=== PATIENT | male | born 1975 ===

== ENCOUNTER 2017-06-10 00:47 | Emergency (ER) | payer MEDICAID ==
[2017-06-10 02:10] VITALS: TEMP 98.8
--- NOTE | 2017-06-10 02:12 | ED PDOC ---
Arrival/HPI - General Time Seen by Provider: 06/10/17 01:55 Historian: Patient - History of Present Illness Narrative History of Present Illness (Text): you were treated in the ED today for hx of left shoulder dislocation and had a fall injury to the left shoulder with pain and secondarily with head injury but otherwise without any loss of consciousness/neck pain/nausea/vomiting/headache/ dizziness/difficulty breathing/chest pain/abdomen pain/numbness/tingling/loss of limb function/pain with urination. 06/10/17 02:08 Time/Duration: 4-6 hours Past Medical History - Provider Review Nursing Documentation Reviewed: Yes - Travel History Have you recently traveled outside [place] w/in the past 3 mons?: No Family/Social History - Physician Review Nursing Documentation Reviewed: Yes Family/Social History: No Known Family HX Allergies/Home Meds Allergies/Adverse Reactions: Allergies oxycodone Allergy (Verified 06/10/17 01:51) ANAPHYLAXIS Review of Systems - Review of Systems Constitutional: Normal Eyes: Normal ENT: Normal Respiratory: Normal Cardiovascular: Normal Gastrointestinal: Normal Genitourinary Male: Normal Musculoskeletal: Arthralgias Skin: Normal Neurological: Normal Endocrine: Normal Hemo/Lymphatic: Normal Psychiatric: Normal Physical Exam Vital Signs Reviewed: Yes Vital Signs Temp Pulse Resp BP Pulse Ox 06/10/17 02:06 98.8 F 93 H 18 117/69 100 Appearance: Positive for: Well-Appearing, Non-Toxic, Comfortable Pain Distress: None Mental Status: Positive for: Alert and Oriented X 3 - Systems Exam Head: Present: Normocephalic, Other (mild scalp abrasion but no depression/ tenderness.) Pupils: Present: PERRL Extroacular Muscles: Present: EOMI Conjunctiva: Present: Normal Ears: Present: Normal Mouth: Present: Moist Mucous Membranes Pharnyx: Present: Normal Nose (External): Present: Atraumatic Nose (Internal): Present: Normal Inspection Neck: Present: Normal Range of Motion, Other (no c-t-l spinal or paraspinal tenderness) Respiratory/Chest: Present: Clear to Auscultation, Good Air Exchange Cardiovascular: Present: Regular Rate and Rhythm, Muffled Abdomen: No: Tenderness, Distention, Normal Bowel Sounds, Peritoneal Signs, Rebound, Guarding, McBurney's Point Tender, Rovsing's Sign Present, Hernias, Feeding Tubes, Ostomy Tubes, Mass/Organomegaly, Scars, Other Back: Present: Normal Inspection Upper Extremity: Present: Normal Inspection, Other (left shoulder mild discomfort but otherwise warm/sensation/pink/cap refill/radial pulse+.) Lower Extremity: Present: Normal Inspection Neurological: Present: GCS=15, CN II-XII Intact, Speech Normal, Motor Func Grossly Intact Skin: Present: Warm, Normal Color Psychiatric: Present: Alert, Oriented x 3, Normal Insight, Normal Concentration Medical Decision Making ED Course and Treatment: you were treated in the ED today for hx of left shoulder dislocation and had a fall injury to the left shoulder with pain and secondarily with head injury but otherwise without any loss of consciousness/neck pain/nausea/vomiting/headache/ dizziness/difficulty breathing/chest pain/abdomen pain/numbness/tingling/loss of limb function/pain with urination. You were otherwise breathing easily, pink moist lips, talking easily, good strength/sensation, alert/oriented, walking easily, clear lungs, no abdomen tenderness, left shoulder discomfort but otherwise good range of motion/warm/sensation/pink/good radial pulses and no other bony or spinal tenderness, mild scalp superficial abrasion without depression/bony tenderness, no fever temp 98.8, stable heart rate 93, stable breathing rate 18, excellent oxygen level 100% room air, stable blood pressure 117/69 which we recommend repeat in 2-3 days primary care office to determine further treatment, left shoulder xray radiology initial left shoulder dislocation and weight reduction done and repeat with improvement in alignment, tylenol, observation, shoulder sling done in the ED with improvement and nice warm extremity with good pulses and no other bony tenderness after reduction, had a long conversation regarding ct head recommendation but you refused and cautioned for complications/ and you stated you didn't pass out and have no head symptoms, counselled to have friend/family monitor you for alertness every 1-2hours and or worsening drowsiness or any medical condition, and thus discharged home. 1. Recommend tylenol or motrin as directed for pain. 2. Recommend follow-up primary care 1-2 days to review symptoms, determine tetanus status as you were unsure, get final xray report, orthopedics referral. 3. If any worsening pain, fever, chills, nausea, vomiting, difficulty breathing, numbness, loss of limb function, pain with urination or any medical condition then return to the ED. left shoulder xray initial anterior dislocation. pt in prone position with weight reduction and felt pop back in place. left shoulder xray post-reduction with good location. Reassessment Condition: Re-examined, Improved - RAD Interpretation Radiology Orders: 06/10/17 02:06 SHOULDER LEFT [RAD] Stat 06/10/17 03:30 SHOULDER LEFT [RAD] Stat Chief Of Staff: ED Physician (see mdm) - Medication Orders Current Medication Orders: Discontinued Medications Acetaminophen (Tylenol 325mg Tab) 975 mg PO STAT STA Stop: 06/10/17 02:07 Last Admin: 06/10/17 02:30 Dose: 975 mg MAR Pain/Vitals Document 06/10/17 02:30 RD (Rec: 06/10/17 02:30 RD [facility] [id number]) Pain Reassessment Is This A Pain ReAssessment? No Sleep Is patient sleeping during reassessment? No Presence of Pain Presence of Pain Yes Pain Scale Used Pain Scale Used Numeric Disposition/Present on Arrival - Present on Arrival Any Indicators Present on Arrival: No - Disposition Have Diagnosis and Disposition been Completed?: Yes Diagnosis: Shoulder dislocation Disposition: HOME/ ROUTINE Disposition Time: 03:51 Patient Plan: Discharge Condition: IMPROVED Discharge Instructions (ExitCare): Shoulder Dislocation (DC) Additional Instructions: you were treated in the ED today for hx of left shoulder dislocation and had a fall injury to the left shoulder with pain and secondarily with head injury but otherwise without any loss of consciousness/neck pain/nausea/vomiting/headache/ dizziness/difficulty breathing/chest pain/abdomen pain/numbness/tingling/loss of limb function/pain with urination. You were otherwise breathing easily, pink moist lips, talking easily, good strength/sensation, alert/oriented, walking easily, clear lungs, no abdomen tenderness, left shoulder discomfort but otherwise good range of motion/warm/sensation/pink/good radial pulses and no other bony or spinal tenderness, mild scalp superficial abrasion without depression/bony tenderness, no fever temp 98.8, stable heart rate 93, stable breathing rate 18, excellent oxygen level 100% room air, stable blood pressure 117/69 which we recommend repeat in 2-3 days primary care office to determine further treatment, left shoulder xray radiology initial left shoulder dislocation and weight reduction done and repeat with improvement in alignment, tylenol, observation, shoulder sling done in the ED with improvement and nice warm extremity with good pulses and no other bony tenderness after reduction, had a long conversation regarding ct head recommendation but you refused and cautioned for complications/ and you stated you didn't pass out and have no head symptoms, counselled to have friend/family monitor you for alertness every 1-2hours and or worsening drowsiness or any medical condition, and thus discharged home. 1. Recommend tylenol or motrin as directed for pain. 2. Recommend follow-up primary care 1-2 days to review symptoms, determine tetanus status as you were unsure, get final xray report, orthopedics referral. 3. If any worsening pain, fever, chills, nausea, vomiting, difficulty breathing, numbness, loss of limb function, pain with urination or any medical condition then return to the ED.
[2017-06-10 04:29] VITALS: BP 120/60; PULSE 89; RESP 19; O2SAT 99
--- NOTE | 2017-06-10 11:06 | RAD ---
PROCEDURE: Radiographs of the Left Shoulder HISTORY: post-reduction COMPARISON: No prior. FINDINGS: BONES: Normal. No fracture. JOINTS: Normal. Glenohumeral and acromioclavicular joints preserved. No osteoarthritis. SOFT TISSUES: Normal. OTHER FINDINGS: None. IMPRESSION: Normal radiographs of the left shoulder.
--- NOTE | 2017-06-10 11:08 | RAD ---
PROCEDURE: Radiographs of the Left Shoulder HISTORY: 42yoM, left shoulder injury COMPARISON: No prior. FINDINGS: BONES: Normal. No fracture. JOINTS: Anterior dislocation at glenohumeral articulation. No fracture appreciated. Acromioclavicular articulation is intact. SOFT TISSUES: Normal. OTHER FINDINGS: None. IMPRESSION: Anterior dislocation of left glenohumeral joint.
== END 2017-06-10 03:55 | disposition home or self-care (01) ==
LOC: ED 00:47
DX: S43.015A Anterior dislocation of left humerus, initial encounter (principal); W19.XXXA Unspecified fall, initial encounter